=== PATIENT | female | born 1975 | race Caucasian/White ===

== ENCOUNTER 2017-12-22 10:12 | Emergency (ER) | payer BC, OTHER ==
[~2017-12-22] VITALS: Ht 162.6 cm; Wt 64.8 kg
[2017-12-22 10:15] VITALS: TEMP 36.7; Ht 162.6 cm; Wt 64.8 kg
--- NOTE | 2017-12-22 10:39 | EMERGENCY ROOM VISIT NOTE ---
History Report prepared by Aisha: Jenna Ashford Under the Supervision of: Dr. Roman Borrego M.D. First contact with patient: 10:20 Chief Complaint: CHEST PAIN Stated Complaint: CHEST TIGHTNESS, PAIN History of Present Illness The patient is a 42 year old female who presents to the Emergency Room with complaints of chest pain over the last 4 days. The patient describes her pain as a tightness and states that she also gets intermittent shooting pains that last for several seconds. She states that when she gets these shooting pains that she is unable to move. The patient reports having abdominal pain last week but not recently. The patient denies having pain or swelling in her legs. She reports that she has a fused bicuspid aortic valve and reports that her mitral valve is prolapsed. 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 She reports that she had surgery last week for IVF retrieval vaginally and states that she had a cardiac clearance before this surgery. She reports that she has been 5 times and has 2 children. The patient reports that she currently has a lot of stress in her life which she thinks may be contributing to her chest pain. She denies having thoughts of hurting herself or others. The patient states that she took Ativan last night for her anxiety and reports that she had anxiety in 2000 and recently in July during which she was also given Ativan. She reports that she got her menstrual cycle 4 days ago. She denies any recent falls or trauma. She denies a personal and family history of blood clots and reports that she does not smoke. Source of History: patient Onset: over the last 4 days Position: chest Quality: other (pain, tightness) Timing: intermittent Associated Symptoms: No abdominal pain Note: also denies: pain or swelling in legs Review of Systems See HPI for pertinent positives & negatives. A total of 10 systems reviewed and were otherwise negative. Past Medical & Surgical Medical Problems: (1) Anxiety (2) H/O mitral valve prolapse Old medical records were reviewed. Nurse's notes were reviewed and I agree with. Family History Patient reports no known family medical history. Social History Smoking Status: Never Smoker Marital Status: Housing Status: lives with family Occupation Status: employed Current/Historical Medications Scheduled Cholecalciferol (Vitamin D3), 1,000 UNITS PO DAILY Multivit/Min/Iron/Fol Ac/Pren ( Vitamin), 1 TAB PO DAILY Scheduled PRN Lorazepam (Ativan), 0.5 MG PO UD PRN for Anxiety/Agitation Allergies Coded Allergies: Doxycycline (Unverified Allergy, Severe, TROUBLE BREATHING, 12/22/17) Physical Exam Vital Signs Date Time Temp Pulse Resp B/P (MAP) Pulse Ox O2 Delivery O2 Flow Rate FiO2 12/22/17 13:19 65 12/22/17 12:46 68 16 106/64 98 Room Air 12/22/17 11:19 71 16 118/70 99 Room Air 12/22/17 11:02 71 12/22/17 10:15 36.7 86 18 122/76 100 Room Air Physical Exam General: Non-ill appearing middle aged female in no acute distress. Mildly anxious, intermittently teary eyed. HEENT: Normal cephalic atraumatic. Pupils are equal round and reactive to light. Extraocular movements are intact. Oropharynx is pink with moist mucous membranes. No swelling of the mouth lips or tongue. Neck: Supple with a midline trachea. No meningeal signs or stiffness, no JVD or bruits. No Stridor. Chest: Clear to auscultation bilaterally. No wheezes or rhonchi. No increased work of breathing. No respiratory distress. Heart: regular rate and rhythm. Abdomen: Soft nontender, nondistended without rebound guarding or rigidity. Extremities: No cyanosis clubbing or edema. No calf tenderness or assymetry Spine/Back. Non tender to palpation. No CVA tenderness Skin: Good turgor without rashes. Neurologic exam: Cranial nerves two through 12 are intact. Motor and sensation are intact and symmetrical throughout. Medical Decision & Procedures ER Provider Diagnostic Interpretation: Radiology results as stated below per my review and radiologist interpretation: CHEST ONE VIEW PORTABLE CLINICAL HISTORY: Atypical chest pain COMPARISON STUDY: No previous studies for comparison. FINDINGS: The cardiac and mediastinal contours are normal. There is no evidence of focal pulmonary consolidation. There is no evidence of failure. No pleural effusions are visualized.[ IMPRESSION: No active disease in the chest. Electronically signed by: Domo Ledezma M.D. 12/22/2017 10:41 AM Dictated Date/Time: 12/22/2017 10:[address] ANGIOGRAM OF THE CHEST CLINICAL HISTORY: Atypical chest pain COMPARISON STUDY: Chest x-ray dated 12/22/2017 TECHNIQUE: Following the IV administration of 83 mL of Optiray-320, CT angiogram of the thorax was performed from the thoracic inlet to the lung bases utilizing the pulmonary embolus protocol. Images are reviewed in the axial, sagittal, and coronal planes. IV contrast was administered without complication. MIP imaging was performed. A dose lowering technique was utilized adhering to the principles of ALARA. CT DOSE: 186.47 mGy.cm FINDINGS: There are tiny bilateral subcentimeter thyroid nodules. No pathologically enlarged axillary mediastinal or hilar lymph nodes were visualized. There was no evidence of thoracic aortic dilatation. There were no pulmonary artery filling defects to indicate acute pulmonary embolism. No pleural effusions are visualized. There was no evidence of focal pulmonary consolidation. IMPRESSION: 1. No acute intrathoracic findings 2. No evidence of acute pulmonary embolism 3. No evidence of focal pulmonary consolidation Electronically signed by: Domo Ledezma M.D. 12/22/2017 1:11 PM Dictated Date/Time: 12/22/2017 1:09 PM Laboratory Results 12/22/17 11:00 Red Blood Count 4.33, Mean Corpuscular Volume 87.5, Mean Corpuscular Hemoglobin 29.6, Mean Corpuscular Hemoglobin Concent 33.8, Mean Platelet Volume 9.9, Neutrophils (%) (Auto) 59.5, Lymphocytes (%) (Auto) 31.2, Monocytes (%) (Auto) 7.7, Eosinophils (%) (Auto) 0.9, Basophils (%) (Auto) 0.5, Neutrophils # (Auto) 3.31, Lymphocytes # (Auto) 1.74, Monocytes # (Auto) 0.43, Eosinophils # (Auto) 0.05, Basophils # (Auto) 0.03 12/22/17 11:00 Test 12/22/17 11:00 White Blood Count 5.57 K/uL (4.8-10.8) Red Blood Count 4.33 M/uL (4.2-5.4) Hemoglobin 12.8 g/dL (12.0-16.0) Hematocrit 37.9 % (37-47) Mean Corpuscular Volume 87.5 fL (80-100) Mean Corpuscular Hemoglobin 29.6 pg (25-34) Mean Corpuscular Hemoglobin Concent 33.8 g/dl (32-36) Platelet Count 209 K/uL (130-400) Mean Platelet Volume 9.9 fL (7.4-10.4) Neutrophils (%) (Auto) 59.5 % Lymphocytes (%) (Auto) 31.2 % Monocytes (%) (Auto) 7.7 % Eosinophils (%) (Auto) 0.9 % Basophils (%) (Auto) 0.5 % Neutrophils # (Auto) 3.31 K/uL (1.4-6.5) Lymphocytes # (Auto) 1.74 K/uL (1.2-3.4) Monocytes # (Auto) 0.43 K/uL (0.11-0.59) Eosinophils # (Auto) 0.05 K/uL (0-0.5) Basophils # (Auto) 0.03 K/uL (0-0.2) RDW Standard Deviation 42.4 fL (36.4-46.3) RDW Coefficient of Variation 13.1 % (11.5-14.5) Immature Granulocyte % (Auto) 0.2 % Immature Granulocyte # (Auto) 0.01 K/uL (0.00-0.02) D-Dimer 970 ug/L FEU (0-500) Anion Gap 7.0 mmol/L (3-11) Est Creatinine Clear Calc Drug Dose 80.8 ml/min Estimated GFR () 106.9 Estimated GFR (Non- 92.2 BUN/Creatinine Ratio 21.3 (10-20) Calcium Level 8.6 mg/dl (8.5-10.1) Total Bilirubin 0.3 mg/dl (0.2-1) Direct Bilirubin < 0.1 mg/dl (0-0.2) Aspartate Amino Transf (AST/SGOT) 21 U/L (15-37) Alanine Aminotransferase (ALT/SGPT) 23 U/L (12-78) Alkaline Phosphatase 75 U/L (45-117) Troponin I < 0.015 ng/ml (0-0.045) Total Protein 7.4 gm/dl (6.4-8.2) Albumin 3.5 gm/dl (3.4-5.0) Lipase 238 U/L (73-393) Thyroid Stimulating Hormone (TSH) 1.640 uIu/ml (0.300-4.500) Human Chorionic Gonadotropin, Qual NEG (NEG) Laboratory studies as stated above per my review. ECG Per My Interpretation Indication: chest pain Rate (beats per minute): 70 Rhythm: normal sinus Findings: no acute ischemic change, no ectopy Comparison ECG Date: no prior available ED Course 1021: Past medical records reviewed. The patient was evaluated in room A12B, and a complete history and physical examination were performed. 1150: I checked on the patient and she appears to be comfortable. I explained the risks and benefits of a CT chest scan with her. 1230: I checked on the patient and she appears to be comfortable. She was talking on the phone and is waiting to go to her CT scan. 1310: I went to check on the patient. She was in a CT scan. 1346: Upon reevaluation, the patient is resting and doing well. I discussed the results and treatment plan with her. She verbalized agreement of the treatment plan. The patient was discharged home. Medical Decision Differentials include, but are not limited to; anxiety, acute coronary syndrome , arrhythmia, PE, thyroid disease, , electrolytes or metabolic abnormalities. This patient comes in as described above. She was placed in room 812. She is here for treatment and evaluation of chest pain. she has been very anxious lately she says. The pain lasts a second or 2 with a sharp jab. She is also had a relatively recent harvesting for . She has been on hormones for this but not on any at present. She is intermittent teary-eyed and does seem anxious at times. IV access established EKG and chest x-rays obtained. EKG does not suggest acute coronary syndrome or arrhythmia. Chest x-ray was unremarkable. She is not . Her TSH is within normal limits and therefore this is not thyroid disease. She has no acute electrolyte or metabolic abnormality. Her d-dimer was mildly elevated and in light of this, I did do a chest CT explained the risk and benefits and the patient freely consented. Fortunately CAT scan shows no evidence of PE or any other acute intrathoracic abnormality. She is feeling better. She does have a few Ativan if needed and I told her she could also try Benadryl as she is also trying to get as that would be likely better if she were to get . Use it sparingly and she was warned that it could make her drowsy and do not take before drinking, driving, working. She denies suicidal ideations is not counselor today. I recommend that she follow-up with her regular doctor and return to the ER if: Worsening of symptoms, fever or chills, any new problems or concerns. Medication Reconcilliation Current Medication List: was personally reviewed by me Blood Pressure Screening Patient's blood pressure: Normal blood pressure Impression Primary Impression: Precordial chest pain Additional Impression: Anxiety Scribe Attestation The scribe's documentation has been prepared under my direction and personally reviewed by me in its entirety. I confirm that the note above accurately reflects all work, treatment, procedures, and medical decision making performed by me. Departure Information Dispostion Home / Self-Care Referrals RV. Moreno MD (PCP) Forms Call Back Authorization, HOME CARE DOCUMENTATION FORM, IMPORTANT VISIT INFORMATION Patient Instructions My [facility] Additional Instructions Rest. Drink plenty of fluids. Return if: Worsening of symptoms, increasing pain or problems, any new problems or concerns Follow-up with your doctor Sunday for recheck Problem Qualifiers
--- NOTE | 2017-12-22 10:42 | DIAGNOSTIC IMAGING REPORT ---
CHEST ONE VIEW PORTABLE CLINICAL HISTORY: Atypical chest pain COMPARISON STUDY: No previous studies for comparison. FINDINGS: The cardiac and mediastinal contours are normal. There is no evidence of focal pulmonary consolidation. There is no evidence of failure. No pleural effusions are visualized.[ IMPRESSION: No active disease in the chest. Electronically signed by: Domo Ledezma M.D. 12/22/2017 10:41 AM Dictated Date/Time: 12/22/2017 10:41 AM
[2017-12-22 11:13] LABS: BASO % 0.5 %; BASO ABS # 0.03 K/uL (0-0.2); EOS % 0.9 %; EOS ABS # 0.05 K/uL (0-0.5); HEMATOCRIT 37.9 % (37-47); HEMOGLOBIN 12.8 g/dL (12.0-16.0); IG# 0.01 K/uL (0.00-0.02); LYMPH % 31.2 %; LYMPH ABS # 1.74 K/uL (1.2-3.4); MEAN CELL VOLUME 87.5 fL (80-100); MEAN CORPUSCULAR HEMOGLOBIN 29.6 pg (25-34); MEAN CORPUSCULAR HGB CONC 33.8 g/dl (32-36); MEAN PLATELET VOLUME 9.9 fL (7.4-10.4); MONO % 7.7 %; MONO ABS # 0.43 K/uL (0.11-0.59); NEUT % 59.5 %; NEUT ABS # 3.31 K/uL (1.4-6.5); PLATELET COUNT 209 K/uL (130-400); RED CELL DISTRIBUTION WIDTH CV 13.1 % (11.5-14.5); RED CELL DISTRIBUTION WIDTH SD 42.4 fL (36.4-46.3); WHITE BLOOD COUNT 5.57 K/uL (4.8-10.8)
[2017-12-22] MEDS ORDERED: LORA-741 PO (11:17)
[2017-12-22] MEDS ORDERED: PRENTAB26 PO (11:20)
[2017-12-22] MEDS ORDERED: CHOL1000 PO (11:20)
[2017-12-22 11:48] LABS: ALBUMIN 3.5 gm/dl (3.4-5.0); ALKALINE PHOSPHATASE 75 U/L (45-117); ALT/SGPT 23 U/L (12-78); AST/SGOT 21 U/L (15-37); BLOOD UREA NITROGEN 17 mg/dl (7-18); CALCIUM 8.6 mg/dl (8.5-10.1); CARBON DIOXIDE 25 mmol/L (21-32); GLUCOSE 86 mg/dl (70-99); LIPASE 238 U/L (73-393); POTASSIUM 4.1 mmol/L (3.5-5.1); SODIUM 140 mmol/L (136-145); TOTAL PROTEIN 7.4 gm/dl (6.4-8.2)
[2017-12-22] MEDS ORDERED: OPTIRAY 320 IV PRN (12:00)
--- NOTE | 2017-12-22 13:13 | DIAGNOSTIC IMAGING REPORT ---
CT ANGIOGRAM OF THE CHEST CLINICAL HISTORY: Atypical chest pain COMPARISON STUDY: Chest x-ray dated 12/22/2017 TECHNIQUE: Following the IV administration of 83 mL of Optiray-320, CT angiogram of the thorax was performed from the thoracic inlet to the lung bases utilizing the pulmonary embolus protocol. Images are reviewed in the axial, sagittal, and coronal planes. IV contrast was administered without complication. MIP imaging was performed. A dose lowering technique was utilized adhering to the principles of ALARA. CT DOSE: 186.47 mGy.cm FINDINGS: There are tiny bilateral subcentimeter thyroid nodules. No pathologically enlarged axillary mediastinal or hilar lymph nodes were visualized. There was no evidence of thoracic aortic dilatation. There were no pulmonary artery filling defects to indicate acute pulmonary embolism. No pleural effusions are visualized. There was no evidence of focal pulmonary consolidation. IMPRESSION: 1. No acute intrathoracic findings 2. No evidence of acute pulmonary embolism 3. No evidence of focal pulmonary consolidation Electronically signed by: Domo Ledezma M.D. 12/22/2017 1:11 PM Dictated Date/Time: 12/22/2017 1:09 PM
[2017-12-22 14:31] VITALS: BP 109/70; PULSE 67; O2SAT 97
== END 2017-12-22 14:10 | disposition home or self-care (01) ==
LOC: C.EDB 10:13 → C.EDA 14:10
DX: R07.2 Precordial pain (principal); F41.9 Anxiety disorder, unspecified; Z79.899 Other long term (current) drug therapy; Z88.1 Allergy status to other antibiotic agents

== ENCOUNTER 2024-03-17 17:57 | Observation (INO) ==
--- NOTE | 2024-03-17 19:05 | XRay Report ---
RIGHT HAND 3 VIEWS; RIGHT WRIST 4 VIEWS CLINICAL HISTORY: Right wrist/hand injury. FINDINGS: 3 views of the right hand an 4 views of the right wrist are obtained. No prior studies are available for comparison at the time of dictation. The skeletal structures are well mineralized. Ther e is a comminuted fracture through the proximal to mid shaft of the first proximal phalanx with numer ous displaced fragments and overlying soft tissue injury. There are foci of soft tissue gas and this likely represents an open fracture. No additional acute fracture is seen involving the wrist or hand. The joint spaces of the wrist and hand are maintained. IMPRESSION: 1. Comminuted fracture of the first proximal phalanx as above with overlying soft tissue injury/soft tissue gas. This likely represents an open fracture. Correlate clinically. 2. No additional acute fractures seen involving the right wrist or hand. Electronically signed by: Zach Silva M.D. 03/17/2024 7:02 PM
[2024-03-17] MEDS: ONDANSETRON INJ 2 MG/ML 2 ML VIAL IV STA (19:31)
[2024-03-17] MEDS: MoRPHine SULFATE 4 MG/ML 1 ML CARP\\VIAL IV STA (19:31)
[2024-03-17] MEDS: ceFAZolin 1000MG 1,000 MG/7.5 ML SYR IV STA (19:55)
[2024-03-17] MEDS ORDERED: PROPOFOL IV EMULSION 10 MG/ML 20 ML VIAL IV ONE (20:29)
[2024-03-17] MEDS ORDERED: ARTIFICIAL TEARS OP OINT 3.5 GM TUBE ONE (20:29)
[2024-03-17] MEDS ORDERED: fentaNYL citrate PF 100 MCG/2 ML VIAL ONE (20:34)
[2024-03-17] MEDS ORDERED: MIDAZOLAM HCL 1 MG/ML 2ML VIAL ONE (20:34)
--- NOTE | 2024-03-17 20:38 | Anesthesiology Consultation ---
Date of Service March 17, 2024 Assessment & Plan Chart Review Chart Review: Acceptable Risk for Surgery and Patient NOT seen in Pre Admission Testing Consults Requested none History Surgery Operation Date: 03/17/24 20:20 Proposed Procedures p Incision and Drainage General - Edinson Shay MD Height/Weight Height: 5 ft 4 in Weight: 69.4 kg Allergies Allergy/AdvReac Type Severity Reaction Status Date / Time doxycycline Allergy Severe TROUBLE Verified 06/27/23 04:30 BREATHING Medications Home Medications Medication Instructions Recorded Confirmed Last Taken CHOLECALCIFEROL (VITAMIN D3) 1,000 unit PO DAILY 30 days #0 tabs 12/22/17 Unknown LORAZEPAM (ATIVAN) 0.5 mg PO UD PRN Anxiety/Agitation 12/22/17 Unknown #0 tabs Multivit/Min/Iron/Fol Ac/Pren 1 tab PO DAILY #0 tabs 12/22/17 Unknown ( Vitamin) Social History Smoking Status: Never smoker Physical Exam Vital Signs Last Vital Signs Temp 36.3 C L 03/17/24 18:09 Pulse 77 03/17/24 19:41 Resp 18 03/17/24 19:41 BP 131/72 03/17/24 19:41 Pulse Ox 97 03/17/24 19:41 O2 Del Method Room Air 03/17/24 19:41
--- NOTE | 2024-03-17 21:09 | Emergency Department Note ---
ED Provider Note History of Present Illness Chief Complaint: Finger Pain Stated Complaint: THUMB PAIN Time Seen by Provider: 03/17/24 18:15 Source: patient Mode of arrival: ambulatory Limitations: no limitations This patient is a 48-year-old female who presents to the emergency department for evaluation of an injury to her right hand/thumb. Patient states that she was organizing some things in her garage when a trailer hitch fell and landed directly onto her right thumb/hand. She is right-hand dominant. She is having pain in the thumb it is unable to fully move it. Home Medications Medication Instructions Recorded Confirmed Type CHOLECALCIFEROL (VITAMIN D3) 1,000 unit PO DAILY 30 days #0 tabs 12/22/17 History LORAZEPAM (ATIVAN) 0.5 mg PO UD PRN Anxiety/Agitation 12/22/17 History #0 tabs Multivit/Min/Iron/Fol Ac/Pren 1 tab PO DAILY #0 tabs 12/22/17 History ( Vitamin) Allergies Allergy/AdvReac Type Severity Reaction Status Date / Time doxycycline Allergy Severe TROUBLE Verified 06/27/23 04:30 BREATHING Past Med/Surg History Problem List (Updated 03/18/24 @ 00:33 by Danielle Jones PA-C) Open fracture of right thumb (Acute) Anxiety (Chronic) H/O mitral valve prolapse (Chronic) Social History Smoking Status: Never smoker Preferred Language: Honduran Feels Safe at Home: Yes Physical Exam Vital Signs Vital Signs - 24 hr 03/17/24 18:09 03/17/24 19:41 03/17/24 20:41 Temperature 36.3 C L Temperature Source Temporal Artery Scan Pulse Rate 125 H Pulse Rate [Finger] 77 91 H Pulse Rhythm [Finger] Regular Pulse Strength [Finger] Normal Respiratory Rate 20 18 18 Respiratory Effort / Characteristics Non-Labored Respiratory Depth Normal Respiratory Pattern Regular Blood Pressure 136/81 Blood Pressure [Left Arm] 131/72 132/85 Blood Pressure Mean 99 Blood Pressure Mean [Left Arm] 91 100 Pulse Oximetry 95 97 97 Oxygen Delivery Method Room Air Room Air Room Air Sepsis Recent Fever Within 48 Hours No Sepsis New/Unexplained Change in Mental Status N/A Sepsis Action Taken by Nursing No Action Required VITALS: Vitals are noted on the nurse's note and reviewed by myself. GENERAL: This is a 48-year-old female, tearful, anxious and uncomfortable appearing. RIGHT HAND: There is obvious deformity of the right thumb in the area of the proximal phalanx with edema and tenderness. Small superficial laceration/abrasion to the lateral aspect of the thumb. There is a 2 cm laceration in the area of the thenar eminence/webspace with moderate oozing bleeding. Patient has slight range of motion of the thumb, but unable to flex at the IP. Sensation is intact throughout the right thumb. Capillary refill within 2 seconds. NEURO: Patient was alert and oriented. Course Consultations Consultation #1: Dr. Shay - orthopedics Administered Medications Fentanyl Citrate (Fentanyl Citrate Pf 100 Mcg/2 Ml Vial) 25 mcg IV Q5M PRN PRN Reason: PACU Use Only-Pain Stop: 03/18/24 07:09 Last Admin: 03/17/24 23:19 Dose: 25 mcg Documented By: Admin: 03/17/24 23:12 Dose: 25 mcg Documented By: LIZBETH Discontinued Medications Acetaminophen (Acetaminophen 1000 Mg/100 Ml Iv) Confirm Administered Dose 1,000 mg IV .STK-MED ONE Stop: 03/17/24 22:47 Last Admin: 03/17/24 23:07 Dose: Not Given Documented By: BMW Acetaminophen (Acetaminophen 1000 Mg/100 Ml Iv) Confirm Administered Dose 1,000 mg IV .STK-MED ONE Stop: 03/17/24 22:47 Last Admin: 03/17/24 23:08 Dose: Not Given Documented By: BMW Acetaminophen (Acetaminophen 1000 Mg/100 Ml Iv) Confirm Administered Dose 1,000 mg IV .STK-MED ONE Stop: 03/17/24 22:48 Last Admin: 03/17/24 23:07 Dose: Not Given Documented By: BMW Acetaminophen (Acetaminophen 1000 Mg/100 Ml Iv) Confirm Administered Dose 1,000 mg IV .STK-MED ONE Stop: 03/17/24 22:53 Last Admin: 03/17/24 23:07 Dose: Not Given Documented By: BMW Cefazolin Sodium (Ancef 1000mg) 1,000 mg in 7.5 mls @ 2.5 mls/min IV NOW STA Stop: 03/17/24 19:22 Last Admin: 03/17/24 19:55 Dose: 2.5 mls/min Documented By: JOSÉ MIGUEL Acetaminophen (Ofirmev) 1,000 mg in 100 mls @ 400 mls/hr IV NOW STA Stop: 03/17/24 22:59 Last Admin: 03/17/24 22:54 Dose: 400 mls/hr Documented By: LIZBETH Morphine Sulfate (Morphine Sulfate 4 Mg/Ml 1 Ml Carp\Vial) 4 mg IV NOW STA Stop: 03/17/24 19:21 Last Admin: 03/17/24 19:31 Dose: 4 mg Documented By: JOSÉ MIGUEL Ondansetron HCl (Ondansetron Inj 2 Mg/Ml 2 Ml Vial) 4 mg IV NOW STA Stop: 03/17/24 19:21 Last Admin: 03/17/24 19:31 Dose: 4 mg Documented By: JOSÉ MIGUEL Medical Decision Making Differential Diagnosis Differential diagnosis includes laceration, soft tissue injury, open fracture, tendon laceration, among others. Imaging Data Attestation: I personally reviewed and interpreted this imaging study as follows: Radiologist's Impression: Hand X-Ray 03/17/24 18:23 RIGHT HAND 3 VIEWS; RIGHT WRIST 4 VIEWS CLINICAL HISTORY: Right wrist/hand injury. FINDINGS: 3 views of the right hand an 4 views of the right wrist are obtained. No prior studies are available for comparison at the time of dictation. The skeletal structures are well mineralized. There is a comminuted fracture through the proximal to mid shaft of the first proximal phalanx with numerous displaced fragments and overlying soft tissue injury. There are foci of soft tissue gas and this likely represents an open fracture. No additional acute fracture is seen involving the wrist or hand. The joint spaces of the wrist and hand are maintained. IMPRESSION: 1. Comminuted fracture of the first proximal phalanx as above with overlying soft tissue injury/soft tissue gas. This likely represents an open fracture. Correlate clinically. 2. No additional acute fractures seen involving the right wrist or hand. Electronically signed by: Zach Silva M.D. 03/17/2024 7:02 PM Wrist X-Ray 03/17/24 18:23 RIGHT HAND 3 VIEWS; RIGHT WRIST 4 VIEWS CLINICAL HISTORY: Right wrist/hand injury. FINDINGS: 3 views of the right hand an 4 views of the right wrist are obtained. No prior studies are available for comparison at the time of dictation. The skeletal structures are well mineralized. There is a comminuted fracture through the proximal to mid shaft of the first proximal phalanx with numerous displaced fragments and overlying soft tissue injury. There are foci of soft tissue gas and this likely represents an open fracture. No additional acute fracture is seen involving the wrist or hand. The joint spaces of the wrist and hand are maintained. IMPRESSION: 1. Comminuted fracture of the first proximal phalanx as above with overlying soft tissue injury/soft tissue gas. This likely represents an open fracture. Correlate clinically. 2. No additional acute fractures seen involving the right wrist or hand. Electronically signed by: Zach Silva M.D. 03/17/2024 7:02 PM MDM Narrative This patient is a 48-year-old female who presents to the emergency department for evaluation of an injury to her right hand and thumb. Placed per completed and reviewed by radiology as above. Patient has a comminuted proximal phalanx fracture with soft tissue gas suggestive of an open fracture. Patient does have an adjacent laceration. Her tetanus is up-to-date. She was given Ancef for antibiotic coverage. She was given a dose of morphine and Zofran for her pain. I consulted orthopedics, Dr. Shay who reviewed the patient and did agree that a washout in the OR would be necessary. He did not feel comfortable with the definitive care of this patient's finger fracture. I did reach out to Dr. Resendiz from orthopedic hand surgery who states that he can see the patient tomorrow. The plan will be for the patient to have a washout tonight and antibiotic coverage overnight, then discharged home to follow-up with Dr. Resendiz tomorrow. Dr. Shay is comfortable with that plan. All findings and treatment plan discussed with the patient. Impression Open fracture of right thumb Discharge Plan Visit Data Chief Complaint: Finger Pain Stated Complaint: THUMB PAIN ED Provider: Magaly Quiñones ED Midlevel Provider: Danielle Jones Discharge Problem: Open fracture of right thumb
--- NOTE | 2024-03-17 21:26 | History & Physical Report ---
Date of Service March 17, 2024 History of Present Illness Chief Complaint: R thumb injury Primary Care Provider: Alfonso Aguilar DO 48 yo female with injury to right thumb, trailer hitch fell on it at 6 pm. Right hand dominant, no significant pain. Exam: thumb nail with capillary refill in 2 seconds, sensation intact, can extend IP joint but no flexion. laceration volar to web space distal thenar 1.5 cm. Hand X-Ray 03/17/24 18:23 RIGHT HAND 3 VIEWS; RIGHT WRIST 4 VIEWS CLINICAL HISTORY: Right wrist/hand injury. FINDINGS: 3 views of the right hand an 4 views of the right wrist are obtained. No prior studies are available for comparison at the time of dictation. The skeletal structures are well mineralized. There is a comminuted fracture through the proximal to mid shaft of the first proximal phalanx with numerous displaced fragments and overlying soft tissue injury. There are foci of soft tissue gas and this likely represents an open fracture. No additional acute fracture is seen involving the wrist or hand. The joint spaces of the wrist and hand are maintained. IMPRESSION: 1. Comminuted fracture of the first proximal phalanx as above with overlying soft tissue injury/soft tissue gas. This likely represents an open fracture. Correlate clinically. 2. No additional acute fractures seen involving the right wrist or hand. Impression:right open thumb proximal phalanx fracture Plan: I&D fracture, splint, followup with Dr. Resendiz tomorrow. Allergies Allergy/AdvReac Type Severity Reaction Status Date / Time doxycycline Allergy Severe TROUBLE Verified 06/27/23 04:30 BREATHING Home Medications Medication Instructions Recorded Confirmed Type CHOLECALCIFEROL (VITAMIN D3) 1,000 unit PO DAILY 30 days #0 tabs 12/22/17 History LORAZEPAM (ATIVAN) 0.5 mg PO UD PRN Anxiety/Agitation 12/22/17 History #0 tabs Multivit/Min/Iron/Fol Ac/Pren 1 tab PO DAILY #0 tabs 12/22/17 History ( Vitamin) Past Med/Surg History Problem List (Updated 07/12/23 @ 00:09 by Brent Boyd) Anxiety (Chronic) H/O mitral valve prolapse (Chronic) Social History Smoking Status: Never smoker Preferred Language: Malay Feels Safe at Home: Yes Results & Data Results & Data Vital Signs (Past 12 Hours) Vital Signs Temp Pulse Pulse Resp BP BP Pulse Ox 03/17/24 20:41 91 H 18 132/85 97 03/17/24 19:41 77 18 131/72 97 03/17/24 18:09 36.3 C L 125 H 20 136/81 95 O2 Del Method 03/17/24 20:41 Room Air 03/17/24 19:41 Room Air 03/17/24 18:09 Room Air
[2024-03-17] MEDS ORDERED: DEXAMETHASONE SOD INJ 4 MG/ML VIAL ONE (21:59)
[2024-03-17] MEDS ORDERED: ONDANSETRON INJ 2 MG/ML 2 ML VIAL ONE (21:59)
--- NOTE | 2024-03-17 22:37 | Post Operative Brief Note ---
PG Immediate Post Op with CF Date of Surgery March 17, 2024 Pre & Post Diagnosis Operation Date: 03/17/24 20:20 <No data on this case meets the specified criteria> I identified the patient and participated in the time-out.: Yes Procedure Operation Date: 03/17/24 20:20 <No data on this case meets the specified criteria> Surgeon Edinson Shay MD Heavy Equipment Plumbing Supervisor none Estimated Blood Loss 5 Findings Consistent with Post-Op Diagnosis Specimens Specimen Description: No specimen per surgeon
[2024-03-17] MEDS: ACETAMINOPHEN 1,000 MG/100 ML VIAL IV STA (22:54)
--- NOTE | 2024-03-17 23:05 | Anesthesiology Progress Note ---
Date of Service March 17, 2024 Anesthesia Post Procedure Vital Signs Vital Signs: Temp Pulse Pulse Pulse Resp BP BP 03/17/24 22:45 36.0 C L 114 H 16 116/78 03/17/24 20:41 91 H 18 132/85 03/17/24 19:41 77 18 131/72 03/17/24 18:09 36.3 C L 125 H 20 136/81 Pulse Ox O2 Del Method 03/17/24 22:45 98 Room Air 03/17/24 20:41 97 Room Air 03/17/24 19:41 97 Room Air 03/17/24 18:09 95 Room Air Transfer of Care Handoff Completed per policy Notes Mental Status: alert / awake / arousable Patient Amnestic to Procedure: Yes Nausea / Vomiting: adequately controlled Pain: adequately controlled Airway Patency, RR, SpO2: stable & adequate BP & HR: stable & adequate Hydration State: stable & adequate Anesthetic Complications: no major complications apparent and Pt Satisfied with anesthetic care
[2024-03-17] MEDS: ACETAMINOPHEN 1000 MG/100 ML IV IV ONE ×4 (23:07→23:08)
[2024-03-17] MEDS ORDERED: ONDANSETRON INJ 2 MG/ML 2 ML VIAL IV PRN (23:09)
[2024-03-17] MEDS ORDERED: ePHEDrine sulfate 50 MG/ML AMP IV PRN (23:09)
[2024-03-17] MEDS ORDERED: ATROPINE SULFATE 0.1 MG/ML 10ML SYR IV PRN (23:09)
[2024-03-17] MEDS: fentaNYL citrate PF 100 MCG/2 ML VIAL IV PRN (23:12)
[2024-03-18] MEDS: LIDOCAINE 1%/EPINEPHRINE 1:100,000 50 ML VIAL INFIL ONE (00:35)
[2024-03-18] MEDS: fentaNYL citrate PF 100 MCG/2 ML VIAL ONE (00:35)
[2024-03-18] MEDS: ceFAZolin 1000MG 1,000 MG/7.5 ML SYR IV ONE (00:37)
--- OUTSIDE RECORDS SUMMARY | 2024-03-18 01:50 | External Medical Summary | Summary of Care ---
Author Name Unknown Organization [facility] [address] [address] Phone [phone] Care Team Providers Care Cutter Operator Brick Name Role Phone DavisblasmartellAlfonso Primary Care Provider [phone] Encounter Details Date Type Department Care Team (Late st Contact Info) Description 02/09/2024 12:40 PM EDT Immunization Pediatrics [facility] [address] [facility] [place] [address] Gw, Flu Shot Clinic Pediatrics [address] [facility] [place] [address] Arrived Allergies Active Allergy Reactions Criticality Noted Date Comments Doxycycline Edema airway High 03/28/2014 documented as of this encounter (statuses as of 02/09/2024) Medications Medication Sig Dispensed Refills Start Date End Date Status LORazepam 0.5 MG Oral Tablet (Ativan) Take 1-2 pills 30 minutes before imaging 2 Tablet 09/12/2023 Active DULoxetine HCl 20 MG Oral Capsule Delayed Release Particles (duloxetine) Take 1 Capsule by mouth in the morning. Do not cut, crush or chew. 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 In addition to the risk of chromosomal abnormalities, there is an increased risk of congenital/structural anomalies. Medication Exposure Discussed that every woman has a background risk for a 3-5% chance of having a baby with a defect. We review the risks and benefits to promote discussion between the the prescribing provider and patient but ultimately it is the patient and prescribing provider's decision. It is important to consider risk to the fetus versus risk of untreated illness. In some cases it is reasonable to continue these medications in , but this must be determined on an individualized basis. Ativan. All benzodiazepines can be expected to cross the placenta. Teratogenicity with all benzodiazepines has not been confirmed; however, some benzodiazepines have demonstrated teratogenic potential. If occurs during chronic use, the patient should be advised of the desirability of discontinuing the drug and of possible consequences to the fetus. If given, prescribe as monotherapy in the lowest effective dosage, for the shortest duration possible, and in divided doses to avoid high peak concentrations. withdrawal symptoms following maternal ingestion have been associated with diazepam, another benzodiazepine, and may occur with alprazolam. Symptoms included tremors, irritability, hyperactivity, hypertonicity, tachypnea, vigorous sucking, and in one case, weight loss, loose stools and vomiting; withdrawal symptoms may not be evident until several days after . We discussed discontinuing the Ativan during . Zoloft/Sertraline. Discussed that although there have been reports in the past regarding anti-depressant therapy and abnormalities or complications, research has not confirmed or supported this claim. Explained that anti- depressants such as the SSRI's and TCA's do not appear to increase the incidence of complications or malformations (with the exception of Paxil). Anti- depressants have been associated with transient effects. We discussed continuing the Zoloft if needed during . Recurrent Miscarriages Discussed that 15-20% of all pregnancies result in miscarriage. Of these, approximately 90% are a result of chromosomal or anatomical defects which are not compatible with life. Other etiologies include maternal metabolic disease, uterine abnormalities, maternal/paternal chromosome abnormalities, or maternal acquired thrombophilias. Explained that unfortunately, the cause of recurrent loss can be determined in only 50% of patients, but it is important to remember that most women with recurrent losses (3 or more miscarriages) have a good prognosis for eventually having a successful (approximately 71-77%), whether or not a definitive diagnosis is made and treatment initiated. Discussed that in a first , the risk of miscarriage is 11-13%. After one miscarriage, this rate rises slightly to 14-21%. After two miscarriages the recurrence rate is 24-29% and after three miscarriages the recurrence rate is 31-33%. These rates can, however, be significantly altered by several factors including the cause of the miscarriages, advanced maternal age, multiparity, previous live outcome, and gestational age at the time of the previous losses. RECOMMENDATIONS: Chromosome studies could be considered for the couple experiencing recurrent loss. Evaluation for the cause of recurrent loss may include sonohysterography or hysterosalpingogram in the non patient and abdominal/transvaginal ultrasound in the patient for detection of a uterine abnormality which are thought to be responsible for 10-50% of recurrent miscarriages. Some abnormalities are surgically correctable but are major uterine surgery and there are no randomized, controlled studies evaluating outcome after surgical correction of uterine anomalies. Recommend testing for maternal diabetes mellitus with hemoglobin A1C and for thyroid disease with TSH. Discussed that we can test for acquired thrombophilias, but that even if a thrombophilia is discovered, it is not necessarily the cause of miscarriage. Recommend testing with anticardiolipin antibodies, lupus anticoagulant, and anti-B2 glycoproteins (completed and negative). Preconception Explained that the goal of pre-conception care is to identify and modify medical, behavioral and social risks to a woman's health or outcome through prevention and management. A multi-disciplinary care approach may be indicated specific to the patient's medical problems. Discussed patient's and partner s family history of heritable genetic disorders. Start daily vitamin supplementation with at least 400 micrograms folic acid. Ensure patient is up-to-date with her immunizations. Assess maternal immunity to rubella and varicella prior to conception. If indicated, MMR and VZV should be administered greater than 1 month prior to conception. Recommend annual influenza vaccination for the patient and her partner to reduce risk of maternal infection. Tdap vaccination should be offered to women who have not been vaccinated in the past 2 years. Recommend appropriate routine exercise and proper diet. Consider referral to a warp preparer prior to conception for maternal conditions that may adversely affect maternal nutritional status including obesity, diabetes, history of gastric bypass, hypertensive disorders, underweight and/or history of gastrointestinal or eating disorders. Advise regular physical activity for 30-60 minutes/day for 5 or more days per week. A detailed history of prescribed and over the counter medications, teratogens, including chemical radiation exposures, infections and tobacco, alcohol or substance abuse should be obtained at least annually for all women of reproductive age. The vast majority of prescribed medications are safe in , even in the first trimester. Patient's current medication/teratogen exposures were reviewed with the patient at today's consult visit. Patient was advised to abstain from alcohol preconceptionally. Patient was offered formal genetic counseling with the Maternal -Medicine genetic counselor for detailed review of risk factors for heritable genetic disorders and of appropriate genetic screenings. Recommend patient seek early care once is confirmed. Major depressive disorder, single episode, moder ate 05/13/2021 YOSI (generalized anxiety disorder) 07/22/2018 Antiphospholipid antibody syndrome 06/22/2017 Overview: MTM referral for Lovenox therapy, pt also taking 81mg ASA daily MFM referral Hemorrhoids 06/08/2014 MVP (mitral valve prolapse) Bicuspid aortic valve documented as of this encounter (statuses as of 02/09/2024) Resolved Problems Problem Noted Date Diagnosed Date Resolved Date Malnutrition of moderate degree 03/25/2021 06/08/2021 Adjustment disorder with depressed mood 07/22/2018 02/02/2022 No advance directives 11/08/20172018 Overview: No advance directives at this time. Reactive depression 11/07/2017 07/22/19 19 Advance care planning 07/24/20172018 Overview: No, Advance Directive brochure given to patient. High-risk supervis ion, first trimester 06/27/2017 08/22/2017 Recurrent loss, currently 8 09/20/2018 History of macrosomia in inf ant in prior , currently 06/27/2017 09/20/2018 Elderly multigravida in first trimester 06/27/2017 09/20/2018 Need for rhogam due to Rh negative mother 06/25/2017 09/20/2018 Overview: Rhogam candidate Antepartum multigravida of a dvanced maternal age 0106/22/2017 07/24/2018 Overview: MFM referral for NIPT INFORMATION 12/06/2016 02/24/2019 Overview: Patient is Unknown . rhogam given 12/06/2016 Teresa Parks RN Women's annual routine gynec ological examination 08/14/2016 08/22/2017 Other specified contraceptive management 06/08/2014 09/20/2018 documented as of this encounter (statuses as of 02/09/2024) Immunizations Name Administration Dates Next Due COVID-19 mRNA, LNP-s, No Pre serve, 2-Dose Series (Pfizer) 04/24/2021,10/13/2020,09/22/2020 Seasonal Influenza, PF, 6 M & above, IM , (FluLaval or Fluzone) 03/28/2022,02/26/2021,02/07/2020, 0 19,02/27/2018 Seasonal Influenza, Quadriva lent, No Preserve, IM 02/07/2017,03/23/2016,03/01/2015 Seasonal Influenza, Trivalen t, (IIV3), PF, (Fluzone) 02/09/2024 Seasonal Influenza, Trivalen t, (IIV3), with Preserv, (Fluzone) 03/11/2014 TDAP (age 10 and older)(Boostrix) 07/20/2023,06/2012 documented as of this encounter Social History Tobacco Use Types Packs/Day Years Used Date Smoking Tobacco: Never Smokeless Tobacco: Never Comments:tried in college / smokes, mostly outside the home. Alcohol Use Standard Drinks/Week Comments Not Currently 0 (1 standard drink = 0.6 oz pur e alcohol) AUDIT-C Answer Date Recorded Frequency of Alcohol Consumption 2-4 times a mon th 09/20/2018 Average Number of Drinks 1 or 2 019 Frequency of Binge Drinking Never 08/27 PHQ-2 Answer Date Recorded PHQ Adult Total Score 16 07/18/2022 Hunger Vital Sign Answer Date Recorded Within the past 12 months, y ou worried that your food would run out before you got the money to buy more. Never true 07/18/19 23 Within the past 12 months, t he food you bought just didn't last and you didn't have money to get more. Never true 07/18/2022 Utilities Answer Date Recorded Do you have trouble paying y our heating, water, or electric bill? (Adult - for ages 18 years and over) Not on file 11/13/2023 Is your family able to pay t he heat, water, or electric bill? (Household - for ages 0-17 years) Not on file 11/13/2023 Does your family have access to good internet? (Household - for ages 0-17 years) Not on file 11/13/2023 Social Connections Answer Date Recorded How often do you feel lonely or isolated from those around you? (Adult - for ages 18 years and over) Not on file 11/13/2023 Sex and Gender Information Value Date Recorded Sex Assigned at Female 12/13/2019 11:36 AM EDT Gender Identity Female 12/13/2019 11:36 AM EDT Sexual Orientation Straight 12/13/2019 11 :36 AM EDT Job Start Date Occupation Industry Not on file Not on file Not on file documented as of this encounter Plan of Treatment Upcoming Encounters Date Type Department Care Team (Late st Contact Info) Description 03/31/2024 2:00 PM EST Imaging Radiology [address] [place] [address] 06/06/2024 2:00 PM EST Imaging Radiology [address] [place] [address] Health Maintenance Due Date Last Done Comments Hepatitis B Vaccine (1 of 3 - 19+ 3-dose series) 1996 HPV/Co-Test 08/14/2007 Cologuard 2022 Fecal Occult Blood Test 2022 Sigmoidoscopy 2022 Depression Monitoring 07/18/2023 07/18/2022 COVID-19 Vaccine ( season) 2024 04/24/2021, 10/13/2020, 09/22/2020 Influenza Vaccine (FLU shot) (#1) 2024 02/09/2024, 03/28/2022, 02/26/2021, Additional history exists Mammogram 03/30/2024 03/30/2023, 11/0 06/2021, 03/22/2021, Additional history exists Cervical Cancer Screening 09/13/2024 Pap Smear 09/13/2024 09/13/2021, 05/29, 06/08/2014 Lipid Panel 07/28/2026 07/28/2021 Diabetes Screening 11/19/2026 11/20/2023, 0 07/20/2023, 07/28/2021, Additional history exists Colonoscopy 02/21/2032 02/20/2022, 02/20/2022 Colorectal Cancer Screening 02/21/2032 DTap/Tdap Vaccines (3 - Td or Tdap) 07/20/2033 07/20/2023, 04/28/2013 HPV (Gardasil) Vaccine Aged Out No lo nger eligible based on patient's age to complete this topic MENINGOCOCCAL (MENACTRA/MENVEO) Aged Out No longer eligible based on patient's age to complete this topic Pneumococcal Vaccine: Pediatrics (0 to 5 Years) and At-Risk Patients (6 to 64 Years) Aged Out No longer eligible based on patient's age to complete this topic documented as of this encounter Medical Devices Not on filedocumented as of this encounter Advance Directives * Full Code (Latest Code Status on File) Date Activated Date Inactivated Comments 08/07/2017 5:11 PM 08/08/2017 12:21 AM This order reflects the patients wishes and were consensually agreed upon. Care Teams Cutter Operator Brick Relationship Specialty Start Date End Date Alfonso Aguilar DO [address] [facility] [place] [address] PCP - General Family Medicine 05/10/15 documented as of this encounter
--- OUTSIDE RECORDS SUMMARY | 2024-03-18 01:50 | External Medical Summary | Summary of Care ---
Author Name Unknown Organization [facility] Address [address] [place] [address] Phone [phone] Care Team Providers Care Operational Risk Consultant Name Role Phone DavisblasmartellAlfonso Primary Care Provider [phone] Reason for Visit * Reason Onset Date Comments Pre Cert/Prior Auth 09/04/2023 Encounter Details Date Type Department Care Team (Late st Contact Info) Description 09/04/2023 Telephone Family Practice [facility] [address] [facility] [address] Out[facility], Precert DO NOT CHANGE - JS Pre Cert/Prior Auth Allergies Active Allergy Reactions Criticality Noted Date Comments Doxycycline Edema airway High 03/28/2014 documented as of this encounter (statuses as of 10/30/2023) Medications No known medicationsdocumented as of this encounter (statuses as of 10/30/2023) Active Problems Problem Noted Date Diagnosed Date [...] and proper diet. Consider referral to a skilled nursing facilities professional prior to conception for maternal conditions that [...] as of this encounter (statuses as of 10/30/2023) Resolved Problems Problem Noted Date Diagnosed Date [...] a dvanced maternal age 0106/22/2017 07/24/2018 Overview: M referral for NIPT INFORMATION 12/06/2016 02/24/2019 Overview: Patient is Unknown . rhogam given 12/06/2016 Teresa Parks RN Women's annual routine gynec ological examination 08/14/2016 08/22/2017 Other specified contraceptive management 06/08/2014 09/20/2018 documented as of this encounter (statuses as of 10/30/2023) Immunizations Name Administration Dates Next Due COVID-19 mRNA, LNP-s, No Pre serve, 2-Dose Series (Pfizer) 04/24/2021,10/13/2020,09/22/2020 Seasonal Influenza, PF, 6 M & above, IM , (FluLaval or Fluzone) 03/28/2022,02/26/2021,02/07/2020, 0 19,02/27/2018 Seasonal Influenza, Quadriva lent, No Preserve, IM 02/07/2017,03/23/2016,03/01/2015 Seasonal Influenza, Split, I IV3, With Preserve, Inj 03/11/2014 TDAP (age 10 and older)(Boostrix) 07/20/2023,06/2012 [...] Frequency of Alcohol Consumption 2-4 times a sun09/20/2018 Average Number of Drinks 1 or 2 [...] money to get more. Never true 07/18/2022 Sex and Gender Information Value Date Recorded Sex Assigned at Female 12/13/2019 11:36 AM EDT Gender Identity Female 12/13/2019 11:36 AM EDT Sexual Orientation Straight 12/13/2019 11 :36 AM EDT Job Start Date Occupation Industry Not on file Not on file Not on file documented as of this encounter Miscellaneous Notes * Telephone Encounter - Alfonso Aguilar DO - 09/17/2023 8:57 AM EDT Pt cancelled her MRIs for the time being. Will work on pper to peer later this week * Telephone Encounter - Caro Lazcano LPN - 09/14/2023 5:53 PM EDT I called to try to complete the peer to peer- I'm not able. I tried to schedule a peer to peer overDr. Lauren's lunch break (approx 12:45) on Sunday but they don't schedule peer to peers. The docjust has to call. Sunday will be the last day that the peer to peer can be done because we only have 10 business days to complete it (the date of the denial counts as day 1). The earliest we can natacha 8 am (their office opens at 7 am central time). * Telephone Encounter - Alfonso Aguilar DO - 09/11/2023 3:20 PM EDT Just another request to set thi up please? * Telephone Encounter - Alfonso Aguilar DO - 09/05/2023 1:31 PM EDT YEs, please set up peer to peer * Telephone Encounter - Suzi Chance LPN - 09/05/2023 1:12 PM EDT Ok to set up peer to peer, please advise. * Telephone Encounter - Jonathan Dobbs OSA - 09/04/2023 3:46 PM EDT The MRI Brain and MRI C Spine requested for Rosalina Millan is currently awaiting Tfci-[id number] Review with Trisha. We kindly request a Nurse, MARIA LUZ, MARIO, or Physician, call and reference tracking # [id number] to engage in a discussion with a Physician Reviewer to obtain the necessary authorization. Based on the clinical documentation provided, the approval of the requested imaging study is contingent upon the completion of a Pxbu-[id number] Review. We urge you to initiate this review process promptly, adhering to any specified timeframes, or at your earliest convenience if no specific timeframe has been provided. These two cases were recently denied and are scheduled for 09/18/2023, please schedule a P2P in order to obtain approval. In the event that a Twxx-bp-Roln Review cannot be conducted, we kindly request that a Clinician contact the patient to discuss and propose an alternative treatment plan. Your prompt attention to thismatter is greatly appreciated. Denial Rationale: RENEE Gan 09/04/2023, 3:46 PM documented in this encounter Plan of Treatment Upcoming Encounters Date Type Department Care Team (Late st Contact Info) Description 03/31/2024 2:00 PM EST Imaging Radiology [address] [place] [address] Health Maintenance Due Date Last Done Comments Hepatitis B (1 of 3 - 19+ 3-dose series) 1996 HPV/Co-Test 08/14/2007 Depression, Most Recent Score >= 10 (will fire each visit until score < 10) 07/19/2022 07/18/2022 Cologuard 2022 Fecal Occult Blood Test 2022 Sigmoidoscopy 2022 COVID-19 Vaccine ( season) 2023 04/24/2021, 10/13/2020, 09/22/2020 Influenza Vaccine (FLU shot) (Season Ended) 2024 03/28/2022, 02/26/2021, 02/07/2020, Additional history exists Mammogram 03/30/2024 03/30/2023, 110 06/2021, 03/22/2021, Additional history exists Cervical Cancer Screening 09/13/2024 Pap Smear 09/13/2024 09/13/2021, 05/29, 06/08/2014 Diabetes Screening 07/20/2026 07/20/2023, 0 07/28/2021, 01/06/2020, Additional history exists Lipid Panel 07/28/2026 07/28/2021 Colonoscopy 02/21/2032 02/20/2022, 02/20/2022 Colorectal Cancer Screening 02/21/2032 DTaP,Tdap,and Td Vaccines (3 - Td or Tdap) 07/20/2033 07/20/2023, 04/28/2013 GARDASIL-HPV IMMUNIZATION SERIES Aged Out No longer eligible based on [...] and were consensually agreed upon. Care Teams Operational Risk Consultant Relationship Specialty Start Date End Date Alfonso Aguilar DO [address] [place] [address] [place] [address] PCP - General Family Medicine 05/10/15 documented as of this encounter
--- OUTSIDE RECORDS SUMMARY | 2024-03-18 01:50 | External Medical Summary | Summary of Care ---
Author Name Unknown Organization [facility] Address [address] [place] [address] Phone [phone] Care Team Providers Care Iron Caster Name Role Phone DavisAlfonso aleman Primary Care Provider [phone] Reason for Visit * Reason Comments Outpatient Testing Encounter Details Date Type Department Care Team (Late st Contact Info) Description 11/20/2023 2:40 PM EDT Laboratory Laboratory, [facility] [address] [place] [address] [facility] [address] [place] [address] Idiopathic Arnold-Chiari malformation (HCC) Allergies Active Allergy Reactions Criticality Noted Date Comments Doxycycline Edema airway High 03/28/2014 documented as of this encounter (statuses as of 11/20/2023) Medications Medication Sig Dispensed Refills Start Date [...] as of this encounter (statuses as of 11/20/2023) Active Problems Problem Noted Date Diagnosed Date [...] and proper diet. Consider referral to a shallot packer prior to conception for maternal conditions that [...] as of this encounter (statuses as of 11/20/2023) Resolved Problems Problem Noted Date Diagnosed Date [...] as of this encounter (statuses as of 11/20/2023) Immunizations Name Administration Dates Next Due COVID-19 mRNA, LNP-s, No Pre serve, 2-Dose Series ([employer]) 04/24/2021,10/13/2020,09/22/2020 Seasonal Influenza, PF, 6 M & [...] Care Team (Late st Contact Info) Description 11/22/2023 1:45 PM EDT Imaging Radiology [address] [place] [address] 03/31/2024 2:00 PM EST Imaging Radiology [address] [place] [address] Pending Results Name Type Priority Associated Diagnoses Date /Time BASIC METABOLIC PANEL Lab Routine Idiopathic Arnold-Chiari malformation (HCC) 11/20/2023 2:45 PM EDT Health Maintenance Due Date Last Done Comments Hepatitis B (1 of 3 - 19+ 3-dose series) 1996 HPV/Co-Test 08/14/2007 Cologuard 2022 Fecal Occult Blood Test 2022 Sigmoidoscopy 2022 COVID-19 Vaccine ( season) 2023 04/24/2021, 10/13/2020, 09/22/2020 Depression Monitoring 07/18/2023 07/18/2022 Influenza Vaccine (FLU shot) (Season Ended) 2024 03/28/2022, 02/26/2021, 02/07/2020, Additional history exists Mammogram 03/30/2024 03/30/2023, 11/0 [...] Not on filedocumented as of this encounter Visit Diagnoses Diagnosis Idiopathic Arnold-Chiari malformation (HCC) documented in this encounter Advance Directives * Full Code (Latest Code Status on File) Date Activated Date Inactivated Comments 08/07/2017 5:11 PM 08/08/2017 12:21 AM This order reflects the patients wishes and were consensually agreed upon. Care Teams Iron Caster Relationship Specialty Start Date End Date Alfonso Aguilar DO [address] [place] [address] PCP - General Family Medicine 05/10/15 documented as of this encounter
--- OUTSIDE RECORDS SUMMARY | 2024-03-18 01:50 | External Medical Summary | Summary of Care ---
Author Name Unknown Organization [facility] Address [address] [place] [address] Phone [phone] Care Team Providers Care Senior Program Planner Name Role Phone DavisblasmartellFrank Primary Care Provider [phone] Reason for Visit * Reason Onset Date Comments Pre Cert/Prior Auth 09/04/2023 Encounter Details Date Type Department Care Team (Late st Contact Info) Description 09/04/2023 Telephone [facility] [address] [facility] [place] [address] Out[facility], Precert DO NOT CHANGE - JS Pre Cert/Prior Auth Allergies Active Allergy Reactions Criticality Noted Date Comments Doxycycline Edema airway High 03/28/2014 documented as of this encounter (statuses as of 10/31/2023) Medications No known medicationsdocumented as of this encounter (statuses as of 10/31/2023) Active Problems Problem Noted Date Diagnosed Date [...] and proper diet. Consider referral to a ux ui designer prior to conception for maternal conditions that [...] as of this encounter (statuses as of 10/31/2023) Resolved Problems Problem Noted Date Diagnosed Date [...] as of this encounter (statuses as of 10/31/2023) Immunizations Name Administration Dates Next Due COVID-19 [...] as of this encounter Miscellaneous Notes * Addendum Note - Frank Riggs DO - 10/31/2023 12:43 PM EDTAddended by: FRANK RIGGS on: 10/31/2023 12:43 PM Modules accepted: Orders * Telephone Encounter - Frank Riggs DO - 10/31/2023 12:23 PM EDT I called over to do the peer to peer but the case was already rejected. I elected to discuss with aphysician what might get approved. We discussed her case and concerns for a chiari malformation. The consulting physician says that I can get the MRI of her cervical spine approved but not the brain. She says I do not need a new orderand it should show up as approved in the next 24-48 hours. Will contact patient through My. Please call patient to schedule JUST MRI cervical spine and blood work for beforehand. * Telephone Encounter - Frank Riggs DO - 09/17/2023 8:57 AM EDT Pt [...] am central time). * Telephone Encounter - Frank Riggs DO - 09/11/2023 3:20 PM EDT Just another request to set thi up please? * Telephone Encounter - Frank Riggs DO - 09/05/2023 1:31 PM EDT YEs, please set up peer to peer * Telephone Encounter - Suzi Chance LPN - 09/05/2023 1:12 PM EDT Ok to set up peer to peer, please advise. * Telephone Encounter - Jonathan Dobbs OSA - 09/04/2023 3:46 PM EDT The MRI Brain and MRI C Spine requested for Rosalina Millan is currently awaiting Hyud-nf-Jmss Review with TEE/Shaan. We kindly request a Nurse, MARIA LUZ, MARIO, or Physician, call and reference tracking # [id number] to engage in a discussion with a Physician Reviewer to obtain the necessary authorization. Based on the clinical documentation provided, the approval of the requested imaging study is contingent upon the completion of a Xsci-xz-Rmeq Review. We urge you to initiate this review process promptly, adhering to any specified timeframes, or at your earliest convenience if no specific timeframe has been provided. These two cases were recently denied and are scheduled for 09/18/2023, please schedule a P2P in order to obtain approval. In the event that a Iglb-dc-Ples Review cannot be conducted, we kindly request that a Clinician contact the patient to discuss and propose an alternative treatment plan. Your prompt attention to thismatter is greatly appreciated. Denial Rationale: RENEE Gan 09/04/2023, 3:46 PM documented in this encounter Plan of Treatment Upcoming Encounters Date Type Department Care Team (Late st Contact Info) Description 03/31/2024 2:00 PM EST Imaging Radiology [address] [place] [address] Scheduled Orders Name Type Priority Associated Diagnoses Orde r Schedule BASIC METABOLIC PANEL Lab Routine Idiopathic Arnold-Chiari malformation (HCC) Expected: 10/31/2023 (Approximate), Expires: 10/30/2024 Health Maintenance Due Date Last Done Comments [...] 02/07/2020, Additional history exists Mammogram 03/30/2024 03/30/2023, 06/2021, 03/22/2021, Additional history exists Cervical Cancer [...] encounter Visit Diagnoses Diagnosis Idiopathic Arnold-Chiari malformation (HCC)- Primary documented in this encounter Advance Directives * Full Code (Latest Code Status on File) Date Activated Date Inactivated Comments 08/07/2017 5:11 PM 08/08/2017 12:21 AM This order reflects the patients wishes and were consensually agreed upon. Care Teams Senior Program Planner Relationship Specialty Start Date End Date Frank Riggs DO [address] [place] [address] PCP - General Family Medicine 05/10/15 documented as of this encounter
--- OUTSIDE RECORDS SUMMARY | 2024-03-18 01:50 | External Medical Summary | Summary of Care ---
Author Name Unknown Organization [facility] Address [address] [place] [address] Phone [phone] Care Team Providers Care Banana Room Cutter Name Role Phone DavisblasmartellFrank Primary Care Provider [phone] Reason for Visit * Reason Onset Date Comments Pre Cert/Prior Auth 09/04/2023 Encounter Details Date Type Department Care Team (Late st Contact Info) Description 09/04/[address] [facility] [address] [facility] [...] and proper diet. Consider referral to a graphic design intern prior to conception for maternal conditions that [...] encounter Miscellaneous Notes * Telephone Encounter - Shelly Akins OSA - 10/31/2023 1:07 PM EDT Sent message to patient to schedule MRI and lab work prior to the MRI * Addendum Note - Frank Riggs DO [...] requested for Rosalina Millan is currently awaiting Fwbc-uu-Mvkh Review with TEE/Shaan. We kindly request a Nurse, MARIA LUZ, MARIO, or Physician, call and reference tracking # [id number] to engage in a discussion with a Physician Reviewer to obtain the necessary authorization. Based on the clinical documentation provided, the approval of the requested imaging study is contingent upon the completion of a Nqkt-yr-Udbv Review. We urge you to initiate this review process promptly, adhering to any specified timeframes, or at your earliest convenience if no specific timeframe has been provided. These two cases were recently denied and are scheduled for 09/18/2023, please schedule a P2P in order to obtain approval. In the event that a Mved-uw-Uodu Review cannot be conducted, we kindly request that a Clinician contact the patient to discuss and propose an alternative treatment plan. Your prompt attention to thismatter is greatly appreciated. Denial Rationale: RENEE Gan 09/04/2023, 3:46 PM documented in this encounter Plan of Treatment Upcoming Encounters Date Type Department Care Team (Late st Contact Info) Description 03/31/2024 2:00 PM EST Imaging Radiology [address] [place] [address] Scheduled Orders Name Type Priority Associated Diagnoses [...] and were consensually agreed upon. Care Teams Banana Room Cutter Relationship Specialty Start Date End Date Frank Riggs DO [address] [place] [address] PCP - General Family Medicine 05/10/15 documented as of this encounter
--- OUTSIDE RECORDS SUMMARY | 2024-03-18 01:50 | External Medical Summary | Summary of Care ---
Author Name Unknown Organization [facility] Address [address] [place] [address] Phone [phone] Care Team Providers Care Kiln Worker Name Role Phone DavisFrank aleman Primary Care Provider [phone] Reason for Visit * Reason Comments Follow Up Pt here for spot on face. No other concerns. Encounter Details Date Type Department Care Team (Late st Contact Info) Description 10/09/2023 3:45 PM EDT Office Visit Dermat[facility] [address] [facility] [place] [address] [facility] [address] [facility] [address] [facility]*; Dobson angioma Allergies Active Allergy Reactions Criticality Noted Date Comments Doxycycline Edema airway High 03/28/2014 documented as of this encounter (statuses as of 10/09/2023) Medications Medication Sig Dispensed Refills Start Date End Date Status LORazepam 0.5 MG Oral Tablet (Ativan) Take 1-2 pills 30 minutes before imaging 2 Tablet 0 09/12/2023 Active documented as of this encounter (statuses as of 10/09/2023) Active Problems Problem Noted Date Diagnosed Date [...] and proper diet. Consider referral to a manager army prior to conception for maternal conditions that [...] as of this encounter (statuses as of 10/09/2023) Resolved Problems Problem Noted Date Diagnosed Date [...] as of this encounter (statuses as of 10/09/2023) Immunizations Name Administration Dates Next Due COVID-19 mRNA, LNP-s, No Pre serve, 2-Dose Series ([employer]) 04/24/2021,10/13/2020,09/22/2020 Seasonal Influenza, PF, 6 M & [...] on file documented as of this encounter Progress Notes * Tor Meza MD - 10/09/2023 3:32 PM EDT SUBJECTIVE: Chief Complaint: Chief Complaint Patient presents with Follow Up Pt here for spot on face. No other concerns. HPI: Rosalina Millan is a 48 year old female seen for treatment of surgical scar. Previously biopsied as angioma. Scarred over. Previously treated with IRENA by Dr. Partida but returned OBJECTIVE: GEN: Healthy, alert, no distress, appears oriented, pleasant, and cooperative SKIN: Problem focused exam reveals: Left forehead - small red dome-shaped papule, surrounding scar tissue ASSESSMENT/PLAN: Scar/angioma PDL V-beam pulsed dye laser performed to areas noted in physical exam after discussing risks and benefits and appropriate wound care. Discussed possibility of bruising for about 10-14 days or longer, possible prolonged hyperpigmentation for several months, blistering, crust formation and small risk of scarring. Advised patient to avoid sun exposure to treated areas. Settings: Fluence 11 J/cm2, 7 mm spot size, 3 msec pulse duration, 2 Pulses. No charge - repair of surgical scar Tor Meza MD Ref: [id number][[id number]] [address] ADDRESS AVAILABLE None (office) None (fax) PCP: FRANK RIGGS [address] [place] [address] [phone] documented in this encounter Nursing Notes * Laura Mora LPN - 10/09/2023 3:16 PM EDT Patient identified by full name and date of Chief Complaint Patient presents with Follow Up Pt here for spot on face. No other concerns. 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 Care Teams Kiln Worker Relationship Specialty Start Date End Date Frank Riggs DO [address] [place] [address] PCP - General Family Medicine 05/10/15 documented as of this encounter
--- OUTSIDE RECORDS SUMMARY | 2024-03-18 01:50 | External Medical Summary ---
Author Name Unknown Address Unknown Organization [facility] [address] [place] [address] Laboratory Report Ordering Provider Test Date Status ONEIL MARIE 11/20/2023 14:45:00 Final Observation Date Value Abnormality Reference (Units ) Status BUN 11/20/2023 14:45:00 22 Above high normal 6-20 (mg/dL) Final Creatinine 11/20/2023 14:45:00 0.8 0.5-1.0 (mg/dL) Final Glomerular filtration rate/1.73 sq M.predicted [Volume Rate/Area] in Serum, Plasma or Blood by Creatinine-based formula (CKD-EPI) 11/20/2023 14:45:00 >90 >=60 (mL/min) Final eGFR is calculated based on the CKD-EPI 2020 equation Sodium 11/20/2023 14:45:00 137 135-146 (m mol/L) Final Potassium 11/20/2023 14:45:00 4.2 3.5-5.1 (m mol/L) Final Cl 11/20/2023 14:45:00 101 98-107 (mm ol/L) Final CO2 11/20/2023 14:45:00 28 22-32 (mmo l/L) Final Anion gap 11/20/2023 14:45:00 8 7-15 (mmol /L) Final Glucose 11/20/2023 14:45:00 96 70-120 (mg /dL) Final Calcium 11/20/2023 14:45:00 9.6 8.4-10.2 ( mg/dL) Final Performing Location [facility] [[email or web address]] [place] [address] [place] [address]
--- OUTSIDE RECORDS SUMMARY | 2024-03-18 01:50 | External Medical Summary | Summary of Care ---
Author Name Unknown Organization [facility] Address [address] [place] [address] Phone [phone] Care Team Providers Care Labels Molder Name Role Phone Frank Riggs DO Primary Care Provider [phone] Reason for Visit * Reason Comments NEW PATIENT Skin check- pt has a concern regarding some dark spots on her face, discuss a lesion on her forehead that was removed in 2021 * Evaluate & Treat - Unlimited Visits (Within 30 days (routine)) - Pending Review Specialty Diagnoses / Procedures Referred By Geovanni worrell Referred To Contact Dermatology Diagnoses Screening for malignant neoplasm of skin Frank Riggs DO [address] [facility] [address] Referral ID Status Reason Start Date Expiration Date Visits Requested Visits Authorized [id number] Pending Review Specialty Services Required 07/20/[phone] Encounter Details Date Type Department Care Team (Late st Contact Info) Description 10/04/2023 11:15 AM EDT Office Visit Dermatology [address] [place] [address] [facility] [address] [facility] [place] [address] Tor Meza MD [address] [facility] [place] [address] Multiple melanocytic nevi*; Dobson angioma Allergies Active Allergy Reactions Criticality Noted Date Comments Doxycycline Edema airway High 03/28/2014 documented as of this encounter (statuses as of 10/07/2023) Medications Medication Sig Dispensed Refills Start Date End Date Status LORazepam 0.5 MG Oral Tablet (Ativan) Take 1-2 pills 30 minutes before imaging 2 Tablet 0 09/12/2023 Active documented as of this encounter (statuses as of 10/07/2023) Active Problems Problem Noted Date Diagnosed Date [...] and proper diet. Consider referral to a tour counselor prior to conception for maternal conditions that [...] as of this encounter (statuses as of 10/07/2023) Resolved Problems Problem Noted Date Diagnosed Date Resolved Date Malnutrition of moderate degree 03/25/2021 06/08/2021 Adjustment disorder with depressed mood 07/22/2018 02/02/2022 No advance directives 11/08/20172018 Overview: No advance directives at this time. Reactive depression 11/07/2017 07/22/19 Advance care planning 07/24/20172018 Overview: No, Advance [...] as of this encounter (statuses as of 10/07/2023) Immunizations Name Administration Dates Next Due COVID-19 mRNA, LNP-s, No Pre serve, 2-Dose Series ([employer]) 04/24/2021,10/13/2020,09/22/2020 Seasonal Influenza, PF, 6 M & [...] of Alcohol Consumption 2-4 times a mon 09/20/2018 Average Number of Drinks 1 or [...] Progress Notes * Tor Meza MD - 10/04/2023 11:28 AM EDT SUBJECTIVE: Chief Complaint: Chief Complaint Patient presents with NEW PATIENT Skin check- pt has a concern regarding some dark spots on her face, discuss a lesion on her forehead that was removed in 2021 HPI: Rosalina Millan is a 48 year old female seen for a full skin check (patient request). Has a spot on forehead previously biopsied as an angioma, treated with IRENA laser with good response but now returned left forehead: Benign angioma REVIEW OF SYSTEMS: CONSTITUTIONAL: negative SKIN: No new or changing moles or rashes other than those noted in HPI HEME/LYMPH: No new or enlarging lumps or bumps OBJECTIVE: GEN: Healthy, alert, no distress, appears oriented, pleasant, and cooperative SKIN: Detailed exam of hair, face, trunk, arms, and legs Scattered on the chest, abdomen, back upper and lower extremities are multiple evenly pigmented brown macules and papules without significant irregularity. Left forehead - small red dome-shaped papule, surrounding scar tissue ASSESSMENT/PLAN: Multiple benign-appearing nevi - Dermoscopy was used for physical examination of pigmented lesions during todays office visit. - No features concerning for malignancy on exam today. - Discussed and emphasized importance of sun protection with SPF >30 and sun protective attire - Patient to contact physician for any new or changing lesions or other concerns. Scar/angioma - will treat surgical scar with PDL at no charge, will add-on to my schedule at later date to treat Tor Meza MD Ref: SELF[[id number]] [address] ADDRESS AVAILABLE None (office) None (fax) PCP: FRANK RIGGS [address] [place] [address] [phone] documented in this encounter Nursing Notes * Lashawn Villafana LPN - 10/04/2023 11:26 AM EDT Patient identified by name and date of . Do you have any concerns about pain management for today's visit? No Living Will or Advance Directive for Health Care as noted on problem list. [facility] is a way you can talk to your provider online through e-mail. Would you like to sign up? I can activate it for you? ALREADY ACTIVE Chief Complaint Patient presents with NEW PATIENT Skin check- pt has a concern regarding some dark spots on her face, discuss a lesion on her forehead that was removed in 2021 documented in this encounter Plan of Treatment Upcoming Encounters Date Type Department Care Team (Late st Contact Info) Description 10/09/2023 3:45 PM EDT Office Visit [facility]at[facility] [address] [facility] [place] [address] Tor Meza MD [address] [facility] [place] [address] 03/31/2024 2:00 PM EST Imaging Radiology [address] [facility] [place] [address] Scheduled Referrals Name Type Priority Associated Diagnoses Orde r Schedule DERMATOLOGY REFERRAL OP Referral Within 30 days (routine) Screening for malignant neoplasm of skin Ordered: 07/20/2023 Health Maintenance Due Date Last Done Comments [...] as of this encounter Visit Diagnoses Diagnosis Multiple melanocytic nevi- Primary Benign neoplasm of skin, site unspecified Dobson angioma Nevus, non-neoplastic documented in this encounter Advance Directives Latest Code Status on File Code Status Date Activated Date Inactivated Comments Full Code 08/07/2017 5:11 PM 08/08/2017 12:21 AM This order reflects the patients wishes and were consensually agreed upon. Care Teams Labels Molder Relationship Specialty Start Date End Date Frank Riggs DO [address] [place] [address] PCP - General Family Medicine 05/10/15 documented as of this encounter
[2024-03-18 02:29] VITALS: O2SAT 97
[2024-03-18] MEDS: oxyCODONE/ACETAMINOPHEN 5mg/325mg TAB PO PRN (06:02)
[2024-03-18] MEDS: ceFAZolin 2000MG 2,000 MG/15 ML SYR IV SCH (06:12)
--- NOTE | 2024-03-18 07:01 | Orthopedic Progress Note ---
Date of Service March 18, 2024 Assessment & Plan (1) Open fracture of right thumb: Patient is postop day 1 from a right irrigation and debridement of her right first phalanx fracture. This was done by Dr. Shay last evening. She will be discharged this morning. There is communication between Dr. Shay and Dr. Resendiz last evening about further treatment options for the patient. She was splinted in the OR last night. [facility] discretion as her fracture will need a hand specialist. Subjective p Incision and Debridement of right thumb Surgeon: Edinson Shay MD Side: Right Patient is postop day 1 from a right incision and debridement of a right thumb open fracture. She is resting comfortably in her hospital bed today. She is aware that after discharge today, she we will have a follow-up with [facility]. Resendiz for evaluation of her right hand fracture. States that her pain is under control with the pain regimen she has right now. She did receive some IV antibiotics. Denies any numbness or tingling right upper extremity. No other questions or concerns today. Review of Systems All systems reviewed & are unremarkable except as noted in HPI & below. Physical Exam General: Alert and oriented. In no acute distress. Right upper extremity: Her right hand and wrist is splinted. She has some free motion of the right first IP joint. Sensation intact. Capillary fill less than 3 seconds right upper extremity. Constitutional WD/WN, vitals as above Results & Data Results & Data Laboratory Results . Diagnostic Findings . PG Care Time/CCT Total # of Minutes Spent Total Time Spent with Patient: Total time spent is greater than 50% in coordination of care (as documented) at patient's floor/unit and/or counseling patient: Coding Level of Care Code 80833 Post Operative Follow-Up Diagnoses Open fracture of right thumb S62.501B
--- NOTE | 2024-03-18 07:05 | Discharge Summary ---
Date of Service March 18, 2024 Admission HPI (Per Admitting) Patient reported emergency department last evening due to a right thumb injury that she sustained while she was cleaning out her garage. She states that a trailer fell onto her thumb. She had immediate pain as well as a laceration reported Emergency Department where she was found to have a first phalanx open fracture. She was taken in the operating room last evening where she had an irrigation and debridement of the right thumb fracture. She was splinted. She is resting comfortably in her hospital bed today. She has been in the hospital for IV antibiotics last evening. Admission Exam (Per Admitting) Patient is being admitted after a right thumb irrigation debridement. She is resting comfortably in her hospital bed. Splint is in place. No saturation of the dressing. Principal Diagnosis Same as "Discharge Diagnosis" noted below under Discharge Instructions. Discharge Exam General: Alert and oriented. In no acute distress. Right upper extremity: Her right hand and wrist is splinted. She has some free motion of the right first IP joint. Sensation intact. Capillary fill less than 3 seconds right upper extremity. Discharge Data Consultations Orthopedics Procedures Performed Operation Date: 03/17/24 20:20 Actual Procedures p Incision and Debridement of right thumb(Right) - Edinson Shay MD Hospital Course (1) Open fracture of right thumb: Patient is postop day 1 from a right irrigation and debridement of her right first phalanx fracture. This was done by Dr. Shay last evening. She will be discharged this morning. There is communication between Dr. Shay and Dr. Resendiz last evening about further treatment options for the patient. She was splinted in the OR last night. [facility] discretion as her fracture will need a hand specialist. PG Care Time/CCT Total # of Minutes Spent Total Time Spent with Patient: Total time spent is greater than 50% in coordination of care (as documented) at patient's floor/unit and/or counseling patient: Discharge Plan Discharge Items Patient Disposition: Home - Self-Care Reason For Visit: SURGERY Discharge Diagnosis: s/p I and D of right open thumb fracture Activity: Per Instructions section Non-emergency contact: Surgeon Call non-emergency contact if: your symptoms worsen, your pain is not controlled and your temperature is above 101.5 Follow-up/Referrals: Alfonso Aguilar, [Primary Care Provider] - Diet: Regular Addtl Attending Provider Instructions: Keep splint in place until further direction from Dr. Resendiz from [facility]. Pending Studies at Discharge: No Stand-Alone Forms: [facility] [employer] Smoking Cessation Medications and DC Order Prescriptions: New ondansetron 4 mg tablet,disintegrating 4 mg PO Q6H PRN (Reason: nausea and vomiting) Qty: 10 0RF oxycodone 5 mg tablet 5 - 10 mg PO Q6H MDD 6 tablets PRN (Reason: post operative pain) Qty: 18 0RF Continued LORAZEPAM (ATIVAN) 0.5 MG tablet 0.5 mg PO UD PRN (Reason: Anxiety/Agitation) Qty: 0 Multivit/Min/Iron/Fol Ac/Pren ( Vitamin) tablet 1 tab PO DAILY Qty: 0 duloxetine 20 mg PO DAILY Discharge Orders: Discharge Order (Routine); Ordered 03/18/24 Ordered By: Ami Milian/Other Patient Handouts: After Hand Surgery Admission Data Admit Date/Time: 03/17/24 22:40 Attending Provider: Edinson Shay Admit Provider: Edinson Shay Primary Care Provider: Alfonso Aguilar Other Interventions: Discharge Summary Assessment (RN) Last Done: 03/18/24 10:10
[2024-03-18 07:41] VITALS: BP 117/71; PULSE 89; RESP 16; TEMP 98.4
--- NOTE | 2024-03-19 13:56 | Operative Report ---
PG Post Operative Report Pre & Post Diagnosis Operation Date: 03/17/24 20:20 Pre-Op Diagnosis: Right thumb injury Post-Op Diagnosis: Right thumb injury I identified the patient and participated in the time-out.: Yes Procedure Operation Date: 03/17/24 20:20 Actual Procedures p Incision and Debridement of right thumb(Right) - Edinson Shay MD Surgeon Edinson Shay MD Environmental Technician none Estimated Blood Loss 5 Findings Consistent with Post-Op Diagnosis Specimens none Description of Procedure 1. Debridement of right thenar/proximal phalanx laceration. (84331) Patient was taken the operating room after adequate anesthesia was carefully positioned on the OR table supine with the right arm extended. A preprepped was performed followed by then prepping and draping the right upper extremity. Examination at this time revealed the patient to have a laceration approximately 15 mm in length just volar to the webspace between the thumb and index finger, distal thenar region. Exploration of this revealed the laceration to extend into the thenar musculature, but also palpation allowed for the proximal phalanx fracture to be palpated a few small pieces of bone were then removed. There was no gross contamination, I then irrigated the site with 800 mL of normal saline solution. Some small areas of skin were removed along with the bone fragments. A single 3-0 nylon suture was placed approximating the laceration. Sterile dressing was applied along with a splint extending from the forearm on the dorsal aspect of the thumb stabilizing it in a neutral position. I attest to the content of the Intraoperative Record and any orders documented therein. Any exceptions are noted below.
== END 2024-03-18 10:18 | disposition home or self-care (01) ==
LOC: ED 17:57 → OR 20:18 → 3N 20:18